=== PATIENT | male | born 1995 | race African-American/Black ===

== ENCOUNTER 2021-11-27 19:23 | Emergency (ER) | payer SELFPAY ==
--- NOTE | ~2021-11-27 | XR_ITS ---
EXAMINATION: XR KNEE, LEFT CLINICAL INFORMATION: Status post reduction. COMPARISON: Radiograph of the left knee done earlier today at 8:16 PM. TECHNIQUE: Two views of the left knee. FINDINGS: Satisfactory reduction of the previously visualized lateral patellar dislocation which is now in anatomic positioning. No acute fractures. Stable joint effusion with significant soft tissue thickening around the left knee. XR/XR knee LT 2V IMPRESSION: Satisfactory reduction of a previously seen lateral patellar dislocation.
--- NOTE | ~2021-11-27 | XR_ITS ---
EXAMINATION: XR KNEE, LEFT CLINICAL INFORMATION: Pain COMPARISON: None TECHNIQUE: Two views of the left knee. FINDINGS: Patient was unable to tolerate any additional imaging. On the frontal view, the does appear to be a lateral displacement of the patella suggesting lateral patellar dislocation. This could be clinically correlated. Small joint effusion is present. No other acute fracture or dislocation seen. XR/XR knee LT 3V IMPRESSION: Only 2 views were able to be obtained. On the views were obtained, the patella does appear to be laterally displaced suggesting lateral patellar dislocation. This would be clinically apparent
[2021-11-27 19:43] VITALS: BP 158/100; PULSE 100; TEMP 36.6; O2SAT 100; BMI 26.5
[2021-11-27] MEDS: diazePAM 5 MG TABLET PO (20:31)
[2021-11-27] MEDS: oxyCODONE HCl Immed Release 5 MG TABLET PO (20:31)
--- NOTE | 2021-11-27 20:41 | ED_ITS ---
HPI - Extremity Injury (Lower) General Chief Complaint: Extremity Injury, Lower Stated Complaint: ? left knee dislocation Time Seen by Provider: 11/27/21 19:52 Source: patient Mode of arrival: ambulatory Limitations: no limitations History of Present Illness HPI Narrative: 26-year-old male presents to ED for possible left knee dislocation. Patient states he was playing around with a friend and they got entangled and which causes left knee to twist awkward direction. Patient denies falling on the ground or hitting head. Patient states history of knee dislocation in the past. Related Data Previous Rx's Medication Instructions Recorded naproxen 500 mg tablet 500 mg PO BID PRN 10 Days #20 tab 11/27/21 oxycodone-acetaminophen 5 mg-325 1 tab PO TID PRN 3 Days #9 tab 11/27/21 mg tablet (Percocet) Allergies Allergy/AdvReac Type Severity Reaction Status Date / Time No Known Allergies Allergy Verified 11/27/21 20:23 Review of Systems Review of Systems: Left knee dislocation. Was playing with friends. No other symptoms Yes all other systems are reviewed and are negative [facility] Social History Social History Advance Directives: No Physical Exam Vital Signs: Vital Signs: Last Vital Signs Temp 97.8 F 11/27/21 19:43 Pulse 100 11/27/21 19:43 BP 158/100 H 11/27/21 19:43 Pulse Ox 100 11/27/21 19:43 BMI result Body Mass Index 26.5 Const: General: cooperative, healthy appearing, comfortable, no acute distress, well developed, alert, awake and Physically active Orientation/consciousness: patient oriented x3 HENMT: Head: Yes normal to inspection, Yes No palpable skull fracture present, Yes normocephalic and No atraumatic Eyes: General: appearance normal, both eyes and all related structures Neck: Neck: Yes normal visual inspection, Yes full ROM, Yes no lymphadenopathy, Yes no meningeal signs, Yes trachea midline, Yes supple, No anterior neck swelling and No tender Chest: Chest palpation & inspection: normal inspection of the chest and normal palpation of entire chest wall Resp: Effort & Inspection: normal respiratory effort and able to speak in complete sentences Cardio: Jugular venous distension: no JVD Heart sounds: S1 normal heart sound present and S2 normal heart sound present GI: Inspection: Yes normal to inspection and No abdominal wall ecchymosis Palpation (GI): Soft to palpation, not firm, nontender, no guarding and not rigid : General: No CVA tenderness and Yes no CVA tenderness Back/Spine/Pelvis: Back: no CVA tenderness, No CVA tenderness and No ecchymosis Skin: General skin exam: no rashes or lesions noted and elasticity normal Neuro: General: patient oriented x3, gait normal, no meningeal signs and CN's II-XI intact bilaterally Cranial nerves: Yes CN's II-XII intact bilaterally Extrem: General: Yes normal to inspection and Yes full ROM Knee images: 1. Patella displaced laterally. Popliteal pulses intact. Pedal pulses intact. Neuro exam intact. Psych: Appearance: grossly normal, well kempt and not disheveled Course Course Course Narrative: Most likely dislocated patient sent for x-ray Reevaluation(s) Reevaluation #1: X-ray confirms patella lateral dislocation. Patient given oral Valium and Percocet. 30 minutes later knee was reduced and placed in knee immobilizer. Patient discharged with crutches. Repeat x-ray shows successful patella reduction. Patient form to follow-up with orthopedics. Patient discharged with pain medication Time: 21:41 MDM - Extremity Injury (Lower) MDM Narrative Medical decision making narrative: Patellar dislocation Discharge Plan Discharge Clinical Impression: Closed patellar dislocation Patient Disposition: Home, Self-Care Instructions: Patellar Dislocation (ED), Knee Dislocation (ED), Knee Immobilizer (ED) Additional Instructions: Your patella was successfully reduced. You will need follow-up with orthopedic for re-evaluation. Use brace and crutches. Do not go back to work continue follow-up with Orthopedic. You will be discharged with pain medication. Return to ED for any knee swelling, redness, pain, fever, chills, dislocation, or any other concerning symptoms. Prescriptions: New naproxen 500 mg tablet 500 mg PO BID PRN (Reason: pain) 10 Days Qty: 20 RF: 0 oxycodone-acetaminophen [Percocet] 5-325 mg tablet 1 tab PO TID PRN (Reason: pain) 3 Days Qty: 9 RF: 0 Referrals: Brennan Plata MD [Physician] - 2 days (Left patella disclocation) Stand Alone Forms: Work/School Release Interventions: ED Discharge Assessment Last Done: 11/27/21 22:28 Discharge Date/Time: 11/27/21 22:29 Print Language: [place]
== END 2021-11-27 22:29 | disposition home or self-care (01) ==
PROVIDERS: Emergency Provider Internal Medicine
DX: S83.005A Unspecified dislocation of left patella, initial encounter (principal); M25.562 Pain in left knee; X58.XXXA Exposure to other specified factors, initial encounter; Y93.9 Activity, unspecified; Y92.9 Unspecified place or not applicable; Y99.9 Unspecified external cause status; Z79.899 Other long term (current) drug therapy
CPT/HCPCS: 27560; 73560; 73562; 99283